=== PATIENT | female | born 1960 | race Caucasian/White ===

== ENCOUNTER 2017-01-03 17:41 | Emergency (ER) | payer OTHER ==
[2017-01-03 18:12] VITALS: TEMP 98.6
--- NOTE | 2017-01-03 18:45 | EDPHY ---
H & P Stated Complaint: acute intermittent stabbing pain in r flank area Source: Patient Exam Limitations: No limitations - Personal History LMP (Females 10-55): 22-28 Days Ago Current Tetanus/Diphtheria Vaccine: Yes - Medical/Surgical History Hx Asthma: No Hx Chronic Respiratory Disease: No Hx Diabetes: No Hx Cardiac Disease: No Hx Renal Disease: No Hx Cirrhosis: No Hx Alcoholism: No Hx HIV/AIDS: No Hx Splenectomy or Spleen Trauma: No Other PMH: osteo arthritis - Social History Smoking Status: Never smoked Time Seen by Provider: 01/03/17 18:44 HPI/ROS: CHIEF COMPLAINT: right flank pain HISTORY OF PRESENT ILLNESS: 56-year-old female presents emergency department complaining sharp sided right flank pain that started before lunch today lasting a few minutes, she states it came back a few different times throughout the day, she was driving home from work this evening and had another episode flank pain that was worse. Mild nausea, no vomiting, no fevers. Patient denies difficulty urinating, no urinary frequency, urgency or dysuria, no hematuria. She denies history of kidney stones. On my exam the patient reports her pain has almost resolved. Patient denies abdominal pain, no chest pain or shortness of breath. REVIEW OF SYSTEMS: A comprehensive 10 point review of systems is otherwise negative aside from elements mentioned in the history of present illness. (Monika Jolley) - Physical Exam Exam: Physical Exam Gen: Alert and Oriented, NAD HEENT: PERRL, moist mucous membranes NECK: no meningismus CV: regular rate and regular rhythm PULM: CTAB, no wheezes ABDOMEN: soft, non tender to palpation, no pulsatile masses, BS present BACK: Right CVA tenderness NEURO: Neurologically grossly intact EXTREMITIES: normal appearing SKIN: no rash or break in skin on exposed skin PSYCH: answers questions appropriately. (Monika Jolley) Constitutional: Initial Vital Signs Temperature (C) 37 C 01/03/17 18:09 Heart Rate 63 01/03/17 18:09 Respiratory Rate 18 01/03/17 18:09 Blood Pressure 147/92 H 01/03/17 18:09 O2 Sat (%) 96 01/03/17 18:09 O2 Delivery Mode Room Air Allergies/Adverse Reactions: No Known Allergies Allergy (Unverified 01/03/17 18:09) Home Medications: Medication Instructions Recorded Diclofenac Sodium 01/03/17 Tamsulosin HCl [Flomax 0.4 MG (*)] 0.4 mg PO DAILY #7 cap 01/03/17 Medical Decision Making ED Course/Re-evaluation: 56-year-old female presents right flank pain. She denies abdominal pain. IV established, CBC and chemistry panel obtained, urinalysis ordered. CBC and chemistry panel are unremarkable, no WBCs in urine, urinalysis shows 50-182 red blood cells. On exam the patient has right CVA tenderness. No abdominal pain, no fevers, vital signs are stable. I discussed with the patient that this is likely a kidney stone due to her symptoms, discussed getting a CT abdomen pelvis are ultrasound to evaluate this. The patient would like to wait as her pain has improved. I think this is appropriate. The patient has no evidence of pyelonephritis, no fevers, no evidence of infected stone. She will be discharged home with a urine strainer and follow up with Urology as needed. She is given a prescription for Flomax. Patient is refusing a prescription for pain medication. She has no nausea. She is given strict return precautions for any worsening symptoms, fevers, vomiting, new symptoms or concerns. (Monika Jolley) Differential Diagnosis: The differential diagnosis for the patient's flank pain included but was not limited to musculoskeletal causes, kidney stone, pyelonephritis, shingles, diverticulitis, appendicitis, and aortic aneurysm. (Monika Jolley) Other Provider: The patient wasevaluatedand managed by themidlevel provider. Idiscussed the patient's presentation and course with thephysicianassistantor nurse practitionerand agree with theevaluation. My co-signature indicates that I have reviewed this chart and I agree with the findings and plan of care as documented. I am the secondary supervisingphysician. (Yamel Manzano) - Data Points Laboratory Results: Laboratory Results 01/03/17 19:00 01/03/17 19:00 Medications Given: Discontinued Medications Ketorolac Tromethamine (Toradol) 15 mg IVP EDNOW ONE Stop: 01/03/17 19:55 Last Admin: 01/03/17 20:07 Dose: 15 mg Departure - Departure Disposition: Home, Routine, Self-Care Clinical Impression: Renal colic on right side Condition: Good Instructions: Kidney Stones (ED) Additional Instructions: Kidney stone: Take ibuprofen 400 mg every 6-8 hours as needed for moderate pain. This will also help with inflammation. Take Flomax as directed. Followup with urology as directed for symptoms not improving. Strain urine. Return to the emergency department if you have worsening pain, fevers, persistent vomiting, or other concerns. Referrals: Sunny Armijo MD [Medical Doctor] - As per Instructions Prescriptions: Tamsulosin HCl [Flomax 0.4 MG (*)] 0.4 mg PO DAILY #7 cap
[2017-01-03 18:53] LABS: COLOR PALE YELLOW; LEUKOCYTE ESTERASE,URINE NEGATIVE (NEGATIVE); NITRITE,URINE NEGATIVE (NEGATIVE)
[2017-01-03 18:56] LABS: RBC,URINE 50-182 /hpf (0-3)
[2017-01-03 19:09] LABS: % IMMATURE GRANULYOCYTES 0.2 % (0.0-1.1); ABSOLUTE IMMATURE GRANULOCYTES 0.01 10^3/uL (0.00-0.10); ADD DIFF? NO; ADD MORPH? NO; ADD SCAN? NO; ATYPICAL LYMPHOCYTE FLAG 10 (0-99); FRAGMENT RBC FLAG 0 (0-99); HEMATOCRIT 39.8 % (38.0-47.0); HEMOGLOBIN 13.5 g/dL (12.6-16.3); LEFT SHIFT FLG 0 (0-99); LIPEMIA HEMOLYSIS FLAG 90 (0-99); MEAN CELL HEMOGLOBIN 31.5 pg (27.9-34.1); MEAN CELL HEMOGLOBIN CONCENTR. 33.9 g/dL (32.4-36.7); MEAN CELL VOLUME 92.8 fL (81.5-99.8); MEAN PLATELET VOLUME 9.8 fL (8.7-11.7); PLATELET CLUMPS FLAG 0 (0-99); PLATELET COUNT 191 10^3/uL (150-400); RED BLOOD CELL COUNT 4.29 10^6/uL (4.18-5.33); RED CELL DISTRIBUTION WIDTH 13.1 % (11.5-15.2)
[2017-01-03 19:22] LABS: ANION GAP 9 mEq/L (8-16); CALCIUM 9.3 mg/dL (8.5-10.4); CARBON DIOXIDE 25 mEq/l (22-31); CHLORIDE 104 mEq/L (97-110); CREATININE 0.9 mg/dL (0.6-1.0); GLOMERULAR FILTRATION RATE > 60; GLUCOSE 119 mg/dL (70-100); SODIUM 138 mEq/L (134-144)
[2017-01-03] MEDS ORDERED: KETOROLAC 15 MG/1 ML SDV IVP ONE (19:54)
[2017-01-03 20:29] VITALS: BP 110/70; PULSE 56; RESP 16; O2SAT 99
== END 2017-01-03 20:27 | disposition home or self-care (01) ==
DX: N23 Unspecified renal colic (principal)
CPT/HCPCS: 96374; J1885

== ENCOUNTER 2017-01-09 15:40 | Emergency (ER) | payer OTHER ==
[2017-01-09 15:47] VITALS: O2SAT 96
[2017-01-09] MEDS ORDERED: ONDANSETRON 4 MG/2 ML VIAL ONE (16:02)
--- NOTE | 2017-01-09 16:09 | EDPHY ---
H & P Stated Complaint: Right flank pain/N/V, kidney stone 01/02 Time Seen by Provider: 01/09/17 16:05 - Personal History Current Tetanus/Diphtheria Vaccine: Yes Current Tetanus Diphtheria and Acellular Pertussis (TDAP): Yes - Medical/Surgical History Hx Asthma: No Hx Chronic Respiratory Disease: No Hx Diabetes: No Hx Cardiac Disease: No Hx Renal Disease: No Hx Cirrhosis: No Hx Alcoholism: No Hx HIV/AIDS: No Hx Splenectomy or Spleen Trauma: No Other PMH: osteo arthritis - Social History Smoking Status: Never smoked Constitutional: Initial Vital Signs Temperature (C) 36.9 C 01/09/17 15:45 Heart Rate 56 L 01/09/17 15:45 Respiratory Rate 14 01/09/17 15:45 Blood Pressure 127/56 H 01/09/17 15:45 O2 Sat (%) 96 01/09/17 15:45 O2 Delivery Mode Room Air Allergies/Adverse Reactions: No Known Allergies Allergy (Unverified 01/09/17 15:45) Home Medications: Medication Instructions Recorded Diclofenac Sodium 01/03/17 Tamsulosin HCl [Flomax 0.4 MG (*)] 0.4 mg PO DAILY #7 cap 01/03/17 Medical Decision Making - Diagnostics Imaging Results: Imaging Impressions Abdomen/Pelvis CT 01/09/17 16:19 Impression: 1. Mild to moderate right hydroureteronephrosis secondary to a 4 mm calculus in the posterior right side of the bladder either representing a recently passed right ureterolithiasis or a ureteral calculus stuck in the right ureterovesical junction. 2. No left nephrolithiasis or left hydronephrosis. Attention: This CT examination is specifically designed to evaluate patients who are clinically suspected of having acute obstructive uropathy. This examination does not use radiographic contrast, and as such, provides only a limited evaluation of the abdomen, pelvis, and retroperitoneum. If there is further clinical suspicion for pathological conditions other than obstructive uropathy, a complete CT evaluation of the abdomen and pelvis utilizing intravenous, oral, and rectal contrast should be considered. Findings and recommendations discussed with emergency department physician, Rick Allen MD at 1701 hours on January 09, 2017. Final report concurs with initial preliminary interpretation. Imaging: Discussed imaging studies w/ call center recruiter Radiologist ED Course/Re-evaluation: CHIEF COMPLAINT: Ongoing right flank pain. HISTORY OF PRESENT ILLNESS: The patient is a 56-year-old female diagnosed with kidney stone in the ER by urinalysis 6 days ago who presents with right flank pain. She has had this pain intermittently since Tuesday. It worsened severely today and developed nausea. The pain has not moved at all from Tuesday. She admits decreased urinary output but has been drinking a normal amount of fluids. She denies fever, vomiting, diarrhea, or other complaints. REVIEW OF SYSTEMS: A 10 point review of systems was performed and is negative with the exception of the elements mentioned in the history of present illness. PHYSICAL EXAM: HR, BP, O2 Sat, RR. Temp noted General Appearance: Alert, well hydrated, appropriate, and non-toxic appearing. Head: Atraumatic without scalp tenderness or obvious injury Eyes: Pupils equal, round, reactive to light and accommodation, EOMI, no trauma , no injection. Ears: Clear bilaterally, no perforation, normal landmarks Nose: Atraumatic, no rhinorrhea, clear. Throat: There is no erythema or exudates, no lesions, normal tonsils, mucus membranes moist. Neck: Supple, 2+ carotid upstroke, nontender, no lymphadenopathy. Respiratory: No retractions, no distress, no wheezes, and no accessory muscle use. Lungs are clear to auscultation bilaterally. Cardiovascular: Regular rate and rhythm, no murmurs, rubs, or gallops. Bilateral carotid, radial, dorsalis pedis, and posterior tibial pulses intact. Good capillary refill all extremities. Gastrointestinal: Abdomen is soft, nontender, non-distended, no masses, no rebound, no guarding, no peritoneal signs. Musculoskeletal: Normal active ROM of all extremities, atraumatic. Right flank tenderness just below the ribcage. Neurological: Alert, appropriate, and interactive. The patient has normal DTRs and non-focal cranial nerves, motor, sensory, and cerebellar exam. Skin: No rashes, good turgor, no nodules on palpation. Past medical history: Osteoarthritis, kidney stone. Past surgical history: Denies. Family history: N/A. Social history: Does not abuse alcohol or drugs. DIAGNOSTICS/PROCEDURES/CRITICAL CARE TIME: Study: CT of the abdomen. Results: See Imaging Results section. The study was read by the radiologist. I viewed the images myself on the PACS system. DIFFERENTIAL DIAGNOSIS: The differential diagnosis for the patient's flank pain included but was not limited to musculoskeletal causes, kidney stone, pyelonephritis, shingles, diverticulitis, appendicitis, and aortic aneurysm. MEDICAL DECISION MAKING: This 56-year-old female was diagnosed with kidney stone here 6 days ago by urinalysis but not CT scan. She presents with worsening flank pain in the exact same location as 6 days ago. I feel that CT imaging is warranted this time. An IV was established and labs ordered including urinalysis. 30mg IV Toradol and 4mg IV Zofran administered for pain and nausea. 1703: CT results conveyed to me as right 4mm distal ureteral stone by Dr. Figueroa , radiology. See Imaging Results section for official report. 1730: Reassessed patient. She feels much better after Dilaudid. We discussed the results of her blood work and CT scan. She is comfortable being discharged with pain and nausea medications. She will be discharged after we check the urinalysis. Urinalysis shows blood but no infection. She will be discharged. - Data Points Laboratory Results: Laboratory Results 01/09/17 15:58 01/09/17 15:58 01/09/17 01/09/17 01/09/17 17:36 15:58 15:58 WBC 8.65 10^3/uL 10^3/uL (3.80-9.50) RBC 4.21 10^6/uL 10^6/uL (4.18-5.33) Hgb 13.0 g/dL g/dL (12.6-16.3) Hct 39.0 % % (38.0-47.0) MCV 92.6 fL fL (81.5-99.8) MCH 30.9 pg pg (27.9-34.1) MCHC 33.3 g/dL g/dL (32.4-36.7) RDW 12.8 % % (11.5-15.2) Plt Count 183 10^3/uL 10^3/uL (150-400) MPV 10.0 fL fL (8.7-11.7) Neut % (Auto) 78.2 % H % (39.3-74.2) Lymph % (Auto) 13.4 % L % (15.0-45.0) Oliver % (Auto) 7.1 % % (4.5-13.0) Eos % (Auto) 0.5 % L % (0.6-7.6) Baso % (Auto) 0.6 % % (0.3-1.7) Nucleat RBC Rel Count 0.0 % % (0.0-0.2) Absolute Neuts (auto) 6.77 10^3/uL H 10^3/uL (1.70-6.50) Absolute Lymphs (auto) 1.16 10^3/uL 10^3/uL (1.00-3.00) Absolute Monos (auto) 0.61 10^3/uL 10^3/uL (0.30-0.80) Absolute Eos (auto) 0.04 10^3/uL 10^3/uL (0.03-0.40) Absolute Basos (auto) 0.05 10^3/uL 10^3/uL (0.02-0.10) Absolute Nucleated RBC 0.00 10^3/uL 10^3/uL (0-0.01) Immature Gran % 0.2 % % (0.0-1.1) Immature Gran # 0.02 10^3/uL 10^3/uL (0.00-0.10) Sodium 134 mEq/L mEq/L (134-144) Potassium 3.9 mEq/L mEq/L (3.5-5.2) Chloride 102 mEq/L mEq/L (97-110) Carbon Dioxide 22 mEq/l mEq/l (22-31) Anion Gap 10 mEq/L mEq/L (8-16) BUN 13 mg/dL mg/dL (7-23) Creatinine 1.2 mg/dL H mg/dL (0.6-1.0) Estimated GFR 47 Glucose 131 mg/dL H mg/dL (70-100) Calcium 9.0 mg/dL mg/dL (8.5-10.4) Urine RBC 25-50 /hpf H /hpf (0-3) Urine WBC NONE SEEN /hpf /hpf (0-3) Ur Epithelial Cells TRACE /lpf /lpf (NONE-1+) Calcium Oxalate Crystal PRESENT /hpf /hpf (NONE-1+) Urine Mucus TRACE /lpf /lpf (NONE-1+) Medications Given: Discontinued Medications Hydromorphone HCl (Dilaudid) 1 mg IVP EDNOW ONE Stop: 01/09/17 16:29 Last Admin: 01/09/17 16:30 Dose: 1 mg Sodium Chloride (Ns) 1,000 mls @ 0 mls/hr IV ONCE ONE PRN Reason: Wide Open Stop: 01/09/17 16:33 Last Admin: 01/09/17 16:15 Dose: 1,000 mls Ketorolac Tromethamine (Toradol) 30 mg IVP EDNOW ONE Stop: 01/09/17 16:39 Last Admin: 01/09/17 16:35 Dose: 30 mg Ondansetron HCl (Zofran) 4 mg IVP EDNOW ONE Stop: 01/09/17 16:39 Last Admin: 01/09/17 16:15 Dose: 4 mg Departure - Departure Disposition: Home, Routine, Self-Care Clinical Impression: Kidney stone Condition: Good Instructions: Kidney Stones (ED) Additional Instructions: Drink plenty of fluids. Continue to take for Flomax for the next few days. You have been provided the telephone number of Dr. Almendarez, urology, and can follow up if you have recurrent kidney stone issues. Return for any serious worsening of condition. Referrals: Deb Lopes MD [Primary Care Provider] - As per Instructions Andrew Almendarez MD [Medical Doctor] - As per Instructions Report Scribed for: Rick Allen Report Scribed by: Shravan Suarez Date of Report: 01/09/17 Time of Report: 17:23
[2017-01-09] MEDS ORDERED: HYDROmorphONE/DILAUDID 1 MG/ML SYR ONE (16:21)
[2017-01-09 16:23] LABS: % IMMATURE GRANULYOCYTES 0.2 % (0.0-1.1); ABSOLUTE IMMATURE GRANULOCYTES 0.02 10^3/uL (0.00-0.10); ADD DIFF? NO; ADD MORPH? NO; ADD SCAN? NO; ATYPICAL LYMPHOCYTE FLAG 0 (0-99); FRAGMENT RBC FLAG 0 (0-99); LEFT SHIFT FLG 0 (0-99); LIPEMIA HEMOLYSIS FLAG 80 (0-99); MEAN CELL HEMOGLOBIN 30.9 pg (27.9-34.1); MEAN CELL HEMOGLOBIN CONCENTR. 33.3 g/dL (32.4-36.7); MEAN CELL VOLUME 92.6 fL (81.5-99.8); PLATELET CLUMPS FLAG 20 (0-99); PLATELET COUNT 183 10^3/uL (150-400); RED BLOOD CELL COUNT 4.21 10^6/uL (4.18-5.33); RED CELL DISTRIBUTION WIDTH 12.8 % (11.5-15.2)
[2017-01-09] MEDS ORDERED: KETOROLAC 30 MG/1 ML SDV ONE (16:25)
[2017-01-09] MEDS ORDERED: HYDROmorphONE/DILAUDID 1 MG/ML SYR IVP ONE (16:28)
[2017-01-09 16:29] LABS: ANION GAP 10 mEq/L (8-16); CARBON DIOXIDE 22 mEq/l (22-31); CHLORIDE 102 mEq/L (97-110); CREATININE 1.2 mg/dL (0.6-1.0); GLOMERULAR FILTRATION RATE 47; GLUCOSE 131 mg/dL (70-100); POTASSIUM 3.9 mEq/L (3.5-5.2); SODIUM 134 mEq/L (134-144)
[2017-01-09] MEDS ORDERED: NS 1,000 ML IV ONE (16:32)
[2017-01-09] MEDS ORDERED: ONDANSETRON 4 MG/2 ML VIAL IVP ONE (16:38)
[2017-01-09] MEDS ORDERED: KETOROLAC 30 MG/1 ML SDV IVP ONE (16:38)
[2017-01-09 16:56] VITALS: RESP 16
[2017-01-09 18:06] LABS: MUCUS TRACE /lpf (NONE-1+); RBC,URINE 25-50 /hpf (0-3)
[2017-01-09 18:07] LABS: WBC,URINE NONE SEEN /hpf (0-3)
[2017-01-09] MEDS ORDERED: HYDROCOD/APAP 5/325 PREPACK#6 BTL TAKEHOME ONE (18:51)
[2017-01-09] MEDS ORDERED: ONDANSETRON 4MG PREPACK#2 BTL TAKEHOME ONE (18:52)
[2017-01-09 18:59] VITALS: BP 122/68; PULSE 54; TEMP 98.2
[2017-01-09 20:23] LABS: COLOR YELLOW; LEUKOCYTE ESTERASE,URINE NEGATIVE (NEGATIVE); NITRITE,URINE NEGATIVE (NEGATIVE)
== END 2017-01-09 18:59 | disposition home or self-care (01) ==
DX: N20.0 Calculus of kidney (principal)
CPT/HCPCS: 96374; J1170; J1885; J2405

== ENCOUNTER → 2017-07-06 | Outpatient (CLI) | payer OTHER | LOC: FIMAGING 11:47 | PROVIDERS: ATTEND Family Medicine | DX: Z12.31 Encounter for screening mammogram for malignant neoplasm of breast (principal) | CPT/HCPCS: G0202 ==

== ENCOUNTER 2017-12-01 18:55 | Emergency (ER) | payer OTHER ==
[2017-12-01 19:08] VITALS: PULSE 65; TEMP 98.8; O2SAT 96
[2017-12-01] MEDS ORDERED: AMOXICILLIN/CLAVULANATE POT 875/125 MG TAB PO ONE (19:16)
--- NOTE | 2017-12-01 20:05 | EDPHY ---
H & P Time Seen by Provider: 12/01/17 19:10 HPI/ROS: Chief complaint: Dog bite to right hand History of present illness: 56-year-old female presents to the emergency department for dog bite to her right hand. She was trying to break up a fight between her 2 dogs. She sustained a laceration at the base of the thumb. She denies associated signs or symptoms including no difficulty moving the digits of the right hand. No abnormal coolness or paresthesias in the hand. Her tetanus is up-to-date. Her dogs are healthy and up-to-date on immunizations. Smoking Status: Never smoked Physical Exam: General: Alert, nontoxic Skin: There is a 2 cm laceration that does not extend into deep structures at the base of the right thumb. No foreign body contamination. Musculoskeletal: Patient has full range of motion and strength all pathak all joints of all digits of the right hand. Vascular: Capillary refill brisk in all digits of the right hand. Neurologic: Sensation intact throughout the right hand. Constitutional: Initial Vital Signs Temperature (C) 37.1 C 12/01/17 19:04 Heart Rate 65 12/01/17 19:04 Respiratory Rate 16 12/01/17 19:04 Blood Pressure 104/67 12/01/17 19:04 O2 Sat (%) 96 12/01/17 19:04 O2 Delivery Mode Room Air Allergies/Adverse Reactions: No Known Allergies Allergy (Verified 12/01/17 19:07) Home Medications: Medication Instructions Recorded Diclofenac Sodium 01/03/17 Amoxicillin/Clavulanate Pot 875 mg PO BID 5 Days tab 12/01/17 [Augmentin 875 MG TAB (*)] MDM/Departure - MDM Imaging Results: Imaging Impressions Hand X-Ray 12/01/17 19:16 Impression: No bone or joint abnormality identified. Imaging: I viewed and interpreted images myself Procedures: Procedure: Laceration repair. Verbal consent was obtained from the patient. The 2 cm laceration on the right hand was anesthetized in the usual fashion. The wound was irrigated, draped and explored to its base with a gloved finger. There were no deep structures involved. No tendon injury was identified. The wound was repaired with 5 0 Prolene, 4 simple interrupted sutures. The wound repair was simple. The procedure was performed by myself. Procedure: Splint placement. A Velcro thumb spica splint was applied. After application of the splint I returned and re-examined the patient. The splint was adequately immobilizing the joint and distal to the splint the patient's circulation and sensation was intact. Medications Given: Discontinued Medications Amoxicillin/Clavulanate Potassium (Augmentin 875mg) 875 mg PO EDNOW ONE PRN Reason: Protocol Stop: 12/01/17 19:17 Last Admin: 12/01/17 19:29 Dose: 875 mg ED Course/Re-evaluation: Patient seen under the supervision of my secondary supervising physician Dr. Rick Allen. Patient presents for a dog bite to her right hand. Her right hand is neurovascularly intact. She has good musculoskeletal control of the hand. This appears to be a very superficial wound. X-rays negative. It has been extensively clean. Given that this is a hand injury with significant defect the wound is loosely approximated. Patient is started on antibiotics. Home care is discussed. Return precautions given. Differential Diagnosis: Included but not limited to laceration, deep structure injury, foreign body contamination - Depart Disposition: Home, Routine, Self-Care Clinical Impression: Dog bite of hand Qualifiers: Encounter type: initial encounter Laterality: right Qualified Code(s): S61.451A - Open bite of right hand, initial encounter; W54.0XXA - Bitten by dog , initial encounter; W54.0XXA - Bitten by dog, initial encounter Condition: Good Instructions: Animal Bite (ED), Acute Wounds (ED) Additional Instructions: Follow-up with a hand doctor for recheck Stitches to be removed in 7 days If symptoms worsen or new symptoms develop return to the emergency room for recheck Prescriptions: Amoxicillin/Clavulanate Pot [Augmentin 875 MG TAB (*)] 875 mg PO BID 5 Days tab Referrals: Deb Lopes MD [Primary Care Provider] - As per Instructions Conrad Posey MD [Medical Doctor] - As per Instructions
[2017-12-01 20:17] VITALS: BP 100/67; RESP 60
== END 2017-12-01 20:14 | disposition home or self-care (01) ==
PROC: 0HQFXZZ Repair Right Hand Skin, External Approach (ICD-10-PCS; principal; 2017-12-01)
DX: S61.451A Open bite of right hand, initial encounter (principal); W54.0XXA Bitten by dog, initial encounter
CPT/HCPCS: L3807

== ENCOUNTER → 2018-08-10 | Outpatient (CLI) | payer OTHER | LOC: FIMAGING 13:30 | PROVIDERS: ATTEND Family Medicine | DX: Z12.31 Encounter for screening mammogram for malignant neoplasm of breast (principal) ==

== ENCOUNTER → 2018-11-10 | Outpatient (CLI) | payer OTHER | LOC: FIMAGING 16:40 ==